=== PATIENT | female | born 2000 | race Caucasian/White ===

== ENCOUNTER 2018-04-19 04:44 | Emergency (ER) | END 2018-04-19 09:02 | disposition home or self-care (01) ==

== ENCOUNTER 2018-06-27 09:51 | Emergency (ER) | END 2018-06-27 11:52 | disposition home or self-care (01) ==

== ENCOUNTER 2019-01-09 17:54 | Emergency (ER) | payer OTHER ==
[~2019-01-09] VITALS: Ht 162.6 cm; Wt 67.5 kg
[~2019-01-09 17:54] MED LIST: ACET500C5 PO; CEPH-443 PO; IBUP800T48 PO; NAPR-985 PO; PRENAT PO
[2019-01-09 18:26] VITALS: Ht 162.6 cm; Wt 67.5 kg
[2019-01-09] MEDS ORDERED: LIDOCAINE/MYLANTA 40 ML BTL PO STA (21:20)
[2019-01-09] MEDS ORDERED: BELLADONNA/PHENOBARBITAL TAB PO STA (21:20)
--- NOTE | 2019-01-09 21:23 | ERD ---
ER Documentation Chief Complaint Chief Complaint abdominal pain x 1 week, denies vomiting HPI 18-year-old female presents with epigastric pain that is mild to moderate intermittent and sharp. No nausea or vomiting. Pain is worse after eating. Has not tried medications for this. Denies possibility of . No dysuria hematuria frequency. No fevers. ROS All systems reviewed and are negative except as per history of present illness. Medications Home Meds Active Scripts Cephalexin* (Keflex*) 500 Mg Capsule, 500 MG PO TID for 7 Days, CAP Prov:JENNIFER HART PA-C 01/09/19 Magaldrate/Simethicone* (Mag-Al Plus Suspension*) 30 Ml Oral.susp, 30 ML PO Q6H PRN for GASTROINTESTINAL UPSET for 5 Days, ML Prov:JENNIFER HART PA-C 01/09/19 Ondansetron (Ondansetron Odt) 4 Mg Tab.rapdis, 4 MG PO Q6H PRN for NAUSEA AND/OR VOMITING, #20 TAB Prov:JENNIFER HART PA-C 01/09/19 Famotidine* (Famotidine*) 40 Mg Tablet, 40 MG PO BID, #30 TAB Prov:JENNIFER HART PA-C 01/09/19 Cephalexin* (Keflex*) 500 Mg Capsule, 500 MG PO BID for 7 Days, CAP Prov:CODY JIN PA-C 06/27/18 Ibuprofen* (Motrin*) 800 Mg Tab, 800 MG PO Q6, #30 TAB Prov:CODY JIN PA-C 06/27/18 Acetaminophen* (Tylophen*) 500 Mg Capsule, 2 CAP PO Q8H PRN for PAIN AND OR ELEVATED TEMP, #20 CAP Prov:VANDANA MANN PA-C 04/19/18 Naproxen* (Naprosyn*) 500 Mg Tablet, 500 MG PO BID PRN for PAIN AND/OR INFLAMMATION, #30 TAB Prov:VANDANA MANN PA-C 04/19/18 Reported Medications Multivit/Min/Fol Ac/Iron/Pren* ( S*) 1 Tab Tab, 1 TAB PO DAILY, TAB 07/09/16 Allergies Allergies: Coded Allergies: No Known Allergy (Unverified , 07/09/16) PMhx/Soc History of Surgery: Yes (cholecystectomy) Anesthesia Reaction: No Hx Neurological Disorder: No Hx Respiratory Disorders: No Hx Cardiac Disorders: No Hx Psychiatric Problems: No Hx Miscellaneous Medical Probl: No Hx Alcohol Use: No Hx Substance Use: No Hx Tobacco Use: No FmHx Family History: No diabetes Physical Exam Vitals Vital Signs Date Temp Pulse Resp B/P (MAP) Pulse Ox O2 O2 Flow FiO2 Time Delivery Rate 01/09/19 98.5 75 18 109/59 98 18:26 (76) Physical Exam INITIAL VITAL SIGNS: Reviewed by me GENERAL: Awake, alert and oriented x 4, well appearing, nontoxic, speaking in full sentences. No acute distress HEAD: Atraumatic NECK: Supple. No masses. Full range of motion. No meningismus. No midline tenderness. RESPIRATORY: Clear to auscultation bilaterally. Symmetric chest wall rise. No wheezing or rales. No accessory muscle use. CV: Regular rate and rhythm. No murmurs, rubs, or gallops. ABDOMEN: Soft, non-distended. Nontender. Negative [place]. Negative McBurneys point tenderness. No CVA tenderness bilaterally. No guarding. No rebound. Result Diagram: 01/09/192156 Results 24 hrs Laboratory Tests Test 01/09/19 21:43 01/09/19 21:44 01/09/19 21:57 Bedside Urine pH (LAB) 6.0 Bedside Urine Protein (LAB) Trace Bedside Urine Glucose (UA) Negative Bedside Urine Ketones (LAB) 4+ Bedside Urine Blood Trace-intact Bedside Urine Nitrite (LAB) Positive Bedside Urine Leukocyte Esterase 1+ (L POC Beta HCG, Qualitative POSITIVE White Blood Count 8.2 10^3/ul Red Blood Count 4.44 10^6/ul Hemoglobin 12.8 g/dl Hematocrit 38.1 % Mean Corpuscular Volume 85.8 fl Mean Corpuscular Hemoglobin 28.8 pg Mean Corpuscular 33.6 g/dl Hemoglobin Concent Red Cell Distribution Width 13.1 % Platelet Count 239 10^3/UL Mean Platelet Volume 11.6 fl Immature Granulocytes % 0.400 % Neutrophils % 69.2 % Lymphocytes % 23.6 % Monocytes % 6.0 % Eosinophils % 0.6 % Basophils % 0.2 % Nucleated Red Blood Cells % 0.0 /100WBC Immature Granulocytes # 0.030 10^3/ul Neutrophils # 5.7 10^3/ul Lymphocytes # 1.9 10^3/ul Monocytes # 0.5 10^3/ul Eosinophils # 0.1 10^3/ul Basophils # 0.0 10^3/ul Nucleated Red Blood Cells # 0.0 10^3/ul Urine Color TEMO Urine Clarity CLOUDY Urine pH 5.0 Urine Specific [place] 1.027 Urine Ketones 2+ mg/dL Urine Nitrite POSITIVE mg/dL Urine Bilirubin NEGATIVE mg/dL Urine Urobilinogen 1+ mg/dL Urine Leukocyte Esterase 2+ Kemi/ul Urine Microscopic RBC 5 /HPF Urine Microscopic WBC 33 /HPF Urine Squamous Epithelial Cells MODERATE /HPF Urine Amorphous Crystals FEW /HPF Urine Bacteria FEW /HPF Urine Mucus MANY /HPF Urine Hemoglobin NEGATIVE mg/dL Urine Glucose NEGATIVE mg/dL Urine Total Protein 1+ mg/dl Beta HCG, Quantitative 07011.0 mIU/ml Current Medications Medications Dose Sig/Bill Start Time Status Last (Trade) Ordered Route PRN Stop Time Admin Dose Reason Admin 40 ml ONCE STAT 01/09/19 Cancel Miscellaneous PO 21:20 Medication 01/09/19 21:21 (Gi Cocktail (2)) Belladonna/ 2 tab ONCE STAT 01/09/19 Cancel Phenobarbital PO 21:20 () 01/09/19 21:21 Procedures/MDM The differential diagnosis includes but is not limited to appendicitis, cho lelithiasis, cholecystitis, pancreatitis, hepatitis, gastritis, peptic ulcer disease, bowel obstruction, diverticulitis, renal disease including stones, torsion, AAA, pyelonephritis, and others. Patient's GI examination is benign she has no tenderness throughout. This is likely GERD versus gastritis. She was given a GI cocktail. Urine dip and test ordered. test came back positive which she was unaware of. I informed however an HEATING EQUIPMENT REPAIRER labs were ordered. She was 7 weeks 5 days with IUP. No evidence of ectopic . Her urine did come back with infection she will be treated with Keflex. She does states she has an HEATING EQUIPMENT REPAIRER that she can follow-up with. Patient counseled regarding my diagnostic impression and care plan. Prior to discharge all questions answered. Pt agrees with treatment plan and understands strict return precautions. Pt is instructed to follow up with primary care provider within 24-48 hours. Precautionary instructions provided including instructions to return to the ER if not improving or for any worsening or changing symptoms or concerns. Departure Diagnosis: Primary Impression: UTI (urinary tract infection) Additional Impression: Condition: Stable JENNIFER HART PA-C Jan 09, 2019 21:23
[2019-01-09] MEDS ORDERED: FAMO40TA5 PO (21:25)
[2019-01-09] MEDS ORDERED: UDMYL PO (21:25)
[2019-01-09] MEDS ORDERED: ONDA4TAB14 PO (21:25)
[2019-01-09] MEDS ORDERED: CEPH-443 PO (23:43)
[2019-01-10 00:08] VITALS: BP 123/60; PULSE 74; RESP 18
== END 2019-01-10 00:10 | disposition home or self-care (01) ==
LOC: FTE 17:54
DX: N39.0 Urinary tract infection, site not specified (principal); Z33.1 Pregnant state, incidental
CPT/HCPCS: 36415; 76801; 81001; 81025; 84702; 85025; 86900; 86901; Z7502; 81003

== ENCOUNTER 2019-01-27 03:56 | Emergency (ER) | payer OTHER ==
[~2019-01-27] VITALS: Ht 162.6 cm; Wt 65.5 kg
[~2019-01-27 03:56] MED LIST changes: +FAMO40TA5 PO; +ONDA4TAB14 PO; +UDMYL PO
[2019-01-27 03:58] VITALS: BP 107/67; PULSE 67; RESP 16; Ht 162.6 cm; Wt 65.5 kg
--- NOTE | 2019-01-27 04:44 | ERD ---
ER Documentation Chief Complaint Chief Complaint aower abd pain x 2 days, intercourse 3 days ago, denies bleeding + Preg HPI 19-year-old female with EGA 13 weeks by LMP, presents the emergency department, complaining of 1 day with mild lower pelvic pain. The patient denies vaginal bleeding, no dysuria, no abdominal pain, no diarrhea or constipation, no nausea or vomiting. ROS All systems reviewed and are negative except as per history of present illness. Medications Home Meds Active Scripts Acetaminophen* (Tylenol*) 325 Mg Tablet, 2 TAB PO Q6 PRN for PAIN AND OR ELEVATED TEMP, #20 TAB Prov:CARMEL NOEL MD 01/27/19 Cephalexin* (Keflex*) 500 Mg Capsule, 500 MG PO TID for 7 Days, CAP Prov:JENNIFER HART PA-C 01/09/19 Magaldrate/Simethicone* (Mag-Al Plus Suspension*) 30 Ml Oral.susp, 30 ML PO Q6H PRN for GASTROINTESTINAL UPSET for 5 Days, ML Prov:JENNIFER HART PA-C 01/09/19 Ondansetron (Ondansetron Odt) 4 Mg Tab.rapdis, 4 MG PO Q6H PRN for NAUSEA AND/OR VOMITING, #20 TAB Prov:JENNIFER HART PA-C 01/09/19 Famotidine* (Famotidine*) 40 Mg Tablet, 40 MG PO BID, #30 TAB Prov:JENNIFER HART PA-C 01/09/19 Cephalexin* (Keflex*) 500 Mg Capsule, 500 MG PO BID for 7 Days, CAP Prov:CODY JIN PA-C 06/27/18 Ibuprofen* (Motrin*) 800 Mg Tab, 800 MG PO Q6, #30 TAB Prov:CODY JIN PA-C 06/27/18 Acetaminophen* (Tylophen*) 500 Mg Capsule, 2 CAP PO Q8H PRN for PAIN AND OR ELEVATED TEMP, #20 CAP Prov:VANDANA MANN PA-C 04/19/18 Naproxen* (Naprosyn*) 500 Mg Tablet, 500 MG PO BID PRN for PAIN AND/OR INFLAMMATION, #30 TAB Prov:VANDANA MANN PA-C 04/19/18 Reported Medications Multivit/Min/Fol Ac/Iron/Pren* ( S*) 1 Tab Tab, 1 TAB PO DAILY, TAB 07/09/16 Allergies Allergies: Coded Allergies: No Known Allergy (Unverified , 07/09/16) PMhx/Soc History of Surgery: Yes (gallbladder) Anesthesia Reaction: No Hx Neurological Disorder: No Hx Respiratory Disorders: No Hx Cardiac Disorders: No Hx Psychiatric Problems: No Hx Miscellaneous Medical Probl: No Hx Alcohol Use: No Hx Substance Use: No Hx Tobacco Use: No Smoking Status: Never smoker Physical Exam Vitals Vital Signs Date Temp Pulse Resp B/P (MAP) Pulse Ox O2 O2 Flow FiO2 Time Delivery Rate 01/27/19 97.9 67 16 107/67 100 03:58 (80) Physical Exam Const: No acute distress Head: Atraumatic Eyes: Normal Conjunctiva ENT: Normal External Ears, Nose and Mouth. Neck: Full range of motion. No meningismus. Resp: Clear to auscultation bilaterally Cardio: Regular rate and rhythm, no murmurs Abd: Soft, non tender, non distended. Normal bowel sounds Skin: No petechiae or rashes Back: No midline or flank tenderness Ext: No cyanosis, or edema Neur: Awake and alert Psych: Normal Mood and Affect Results 24 hrs Laboratory Tests Test 01/27/19 04:48 Urine Color YELLOW Urine Clarity SLIGHTLY CLOUDY Urine pH 5.0 Urine Specific [place] 1.025 Urine Ketones 1+ mg/dL Urine Nitrite NEGATIVE mg/dL Urine Bilirubin NEGATIVE mg/dL Urine Urobilinogen NEGATIVE mg/dL Urine Leukocyte Esterase NEGATIVE Kemi/ul Urine Microscopic RBC 2 /HPF Urine Microscopic WBC 2 /HPF Urine Squamous Epithelial Cells FEW /HPF Urine Bacteria FEW /HPF Urine Mucus FEW /HPF Urine Hemoglobin 1+ mg/dL Urine Glucose NEGATIVE mg/dL Urine Total Protein NEGATIVE mg/dl Patient: AMPARO THURMAN : 2000 Age: 18 Sex: F MR #: [id number] DOS: 01/09/192151 Ordering MD: JENNIFER HART PA-C Location: [facility] Room/Bed: PROCEDURE: US Pelvis. CLINICAL INDICATION: Vaginal Bleed () TECHNIQUE: Multiple sonographic images of the pelvis were obtained utilizing a transabdominal technique. The images were reviewed on a PACS workstation. COMPARISON: None. FINDINGS: There is a single intrauterine gestation with the CRL measuring 1.3 cm and the gestational sac measuring 2.8 cm, corresponding to a gestational age of 7 weeks and 5 days. The heart tones are present at 150 bpm. There is no evidence for free fluid. The right ovary is not seen. The left ovary measures 3.8 x 2.4 x 2.8 cm. IMPRESSION: Single intrauterine gestation of 7 weeks and 5 days. RPTAT: AA. Procedures/MDM Vital signs stable, Physical exam unremarkable. Differential diagnosis include but not limited to: UTI, appendicitis, gastroenteritis, food poisoning, threatening . Physical examination and clinical presentation most likely consistent with pelvic pain without clinical evidence of acute abdomen, no vaginal bleeding. During the ED course the patient remained hemodynamically stable and asymptomatic. Results and clinical impression discussed with patient who agrees with management. The patient is stable to be treated outpatient and will be discharged home with close monitoring and follow-up in 2 days with her primary physician. Bed rest and pelvic rest recommended until further medical evaluation. The patient was instructed regarding the outcomes and the potential complications like severe bleeding and . If the patient presents severe bleeding or pain, she was instructed to return to the hospital immediately. Disclaimer: Inadvertent spelling and grammatical errors are likely due to EHR/dictation software use and do not reflect on the overall quality of patient care. Also, please note that the electronic time recorded on this note does not necessarily reflect the actual time of the patient encounter. Departure Diagnosis: Primary Impression: Pelvic pain affecting Condition: Stable Additional Instructions: Thank you very much for allowing us to participate in your care. Your health and safety is our top priority at [facility]. Call your primary care doctor TOMORROW for an appointment during the next 2-4 days and bring all the information and medications prescribed. Have prescriptions filled and follow precisely the directions on the label. If the symptoms get worse and your provider is unavailable, return to the Emergency Department immediately. CARMEL NOEL MD Jan 27, 2019 04:44
[2019-01-27] MEDS ORDERED: ACET325T33 PO (05:14)
== END 2019-01-27 05:38 | disposition home or self-care (01) ==
LOC: FTE 03:56
DX: O26.891 Other specified pregnancy related conditions, first trimester (principal); R10.2 Pelvic and perineal pain; Z3A.13 13 weeks gestation of pregnancy
CPT/HCPCS: 81001; Z7502; 99283

== ENCOUNTER 2019-05-11 19:45 | Emergency (ER) | payer OTHER ==
[~2019-05-11] VITALS: Ht 167.6 cm; Wt 60.0 kg
[~2019-05-11 19:45] MED LIST changes: -ACET500C5 PO; -CEPH-443 PO; -FAMO40TA5 PO; -IBUP800T48 PO; -NAPR-985 PO; -ONDA4TAB14 PO; -UDMYL PO
[2019-05-11 19:49] VITALS: Ht 167.6 cm; Wt 60.0 kg
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
[2019-05-11 21:06] VITALS: BP 130/81; PULSE 71; RESP 19
== END 2019-05-11 21:07 | disposition home or self-care (01) ==
LOC: E/R 19:45
DX: O26.892 Other specified pregnancy related conditions, second trimester (principal); M54.2 Cervicalgia; O99.89 Other specified diseases and conditions complicating pregnancy, childbirth and the puerperium; M54.9 Dorsalgia, unspecified; Z3A.26 26 weeks gestation of pregnancy
CPT/HCPCS: 72040; Z7502; Z7610

== ENCOUNTER 2019-05-11 21:13 | Inpatient (IN) | payer OTHER ==
[~2019-05-11] VITALS: Ht 160 cm; Wt 63.6 kg
[2019-05-11 21:44] VITALS: Ht 160 cm; Wt 63.6 kg
[2019-05-11 21:45] VITALS: BP 98/56; PULSE 66; RESP 18
[2019-05-11] MEDS ORDERED: ACETAMINOPHEN 500 MG TAB PO PRN (22:30)
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
== END 2019-05-12 07:05 | disposition home or self-care (01) | DRG 833 ==
LOC: L-D 21:13 → OBT 21:13 → L-D 21:21 → OBT 21:55 → L-D 21:55
PROVIDERS: ADMIT Obstetrics & Gynecology; ATTEND Obstetrics & Gynecology
DX: O9A.212 Injury, poisoning and certain other consequences of external causes complicating pregnancy, second trimester (principal); Z3A.25 25 weeks gestation of pregnancy; S39.81XA Other specified injuries of abdomen, initial encounter; V43.92XA Unspecified car occupant injured in collision with other type car in traffic accident, initial encounter; Y92.410 Unspecified street and highway as the place of occurrence of the external cause
CPT/HCPCS: 76815; 80053; 81001; 85025; 85460; 85610; 85730; 86900; 86901; G0463

== ENCOUNTER 2019-08-14 20:12 | Outpatient (CLI) | payer OTHER ==
[~2019-08-14] VITALS: Ht 160 cm; Wt 66.8 kg
[2019-08-14 20:27] VITALS: BP 96/56; PULSE 82; RESP 18; Ht 160 cm; Wt 66.8 kg
== END 2019-08-14 23:20 | disposition home or self-care (01) ==
LOC: OBT 20:12 → L-D 20:13 → OBT 23:20
PROVIDERS: ATTEND Obstetrics & Gynecology
DX: O36.5930 Maternal care for other known or suspected poor fetal growth, third trimester, not applicable or unspecified (principal); Z3A.38 38 weeks gestation of pregnancy
CPT/HCPCS: 76815; 76818; 84112; 85025; Z7500; G0463

== ENCOUNTER 2019-08-19 07:54 | Inpatient (IN) | payer OTHER ==
[~2019-08-19] VITALS: Ht 162.6 cm; Wt 67.2 kg
[2019-08-19 08:19] VITALS: BP 116/86; PULSE 85; RESP 18; Ht 162.6 cm; Wt 67.2 kg
[2019-08-19] MEDS ORDERED: LACTATED RINGER'S 1,000 ML IV SCH (08:20)
[2019-08-19] MEDS ORDERED: IBUPROFEN 600 MG TAB PO PRN (08:30)
[2019-08-19] MEDS ORDERED: OXYTOCIN 30 UNITS/LR 500 ML IV PRN ×3 (08:30→11:00)
[2019-08-19] MEDS ORDERED: CARBOPROST 250 MCG INJ IM PRN ×3 (08:30→11:00)
[2019-08-19] MEDS ORDERED: METHYLERGONOVINE 0.2 MG INJ IM PRN ×3 (08:30→11:00)
[2019-08-19] MEDS ORDERED: MISOPROSTOL 200 MCG TAB PR PRN ×3 (08:30→11:00)
[2019-08-19] MEDS ORDERED: LIDOCAINE 1% (MPF) 30 ML INJ INJ PRN (08:30)
[2019-08-19] MEDS ORDERED: BUTORPHANOL 2 MG INJ IV PRN (08:30)
[2019-08-19] MEDS ORDERED: MINERAL OIL LIGHT 10 ML VIAL TOP PRN (08:30)
[2019-08-19] MEDS ORDERED: OXYTOCIN 30 UNITS/LR 500 ML IV SCH ×5 (08:30→10:38)
[2019-08-19] MEDS ORDERED: LANOLIN HPA 1 PKT TOP PRN ×2 (10:30→11:00)
[2019-08-19] MEDS ORDERED: NACL 0.9% 3 ML SYG IV SCH (10:30)
[2019-08-19] MEDS ORDERED: LACTATED RINGER'S 1,000 ML IV* SCH (10:38)
[2019-08-19] MEDS ORDERED: HYDROCODONE/APAP (5/325) TAB PO PRN ×2 (11:00)
[2019-08-19] MEDS ORDERED: MAGNESIUM HYDROXIDE 30ML CUP PO PRN (11:00)
[2019-08-19] MEDS ORDERED: BENZOCAINE 20% 56 ML SPRAY TOP PRN (11:00)
[2019-08-19] MEDS ORDERED: WITCH HAZEL/GLYCERIN PAD PR PRN (11:00)
[2019-08-19] MEDS ORDERED: METHYLERGONOVINE 0.2 MG TAB PO PRN (11:00)
[2019-08-19] MEDS ORDERED: ONDANSETRON 4 MG INJ IV PRN (11:00)
[2019-08-19] MEDS ORDERED: NA PHOSPHATE/BIPHOS 133 ML ENEMA PR PRN (11:00)
[2019-08-19] MEDS ORDERED: ZOLPIDEM 5 MG TAB PO PRN (11:00)
[2019-08-19] MEDS ORDERED: IBUPROFEN 800 MG TAB PO PRN (11:00)
[2019-08-19] MEDS ORDERED: DIPHENHYDRAMINE 25 MG CAP PO PRN (11:00)
[2019-08-19 14:00] VITALS: BP 92/56; PULSE 74; RESP 18
[2019-08-19] MEDS: IBUPROFEN 600 MG TAB PO SCH ×2 (14:00→17:37)
[2019-08-19 19:20] VITALS: BP 101/54; PULSE 66; RESP 18
[2019-08-19] MEDS: SENNA/DOCUSATE NA (8.6MG/50MG) TAB PO SCH (21:14)
[2019-08-20] MEDS: IBUPROFEN 600 MG TAB PO SCH ×4 (00:12→17:25)
[2019-08-20 03:08] VITALS: BP 99/50; PULSE 68; RESP 18
[2019-08-20 08:15] VITALS: BP 92/56; PULSE 54; RESP 18
[2019-08-20] MEDS: SENNA/DOCUSATE NA (8.6MG/50MG) TAB PO SCH ×2 (09:25→21:00)
[2019-08-20 16:13] VITALS: BP 100/59; PULSE 71; RESP 18
[2019-08-20 20:30] VITALS: BP 96/53; PULSE 64; RESP 18
[2019-08-21] MEDS: IBUPROFEN 600 MG TAB PO SCH ×3 (00:15→12:43)
[2019-08-21 04:10] VITALS: BP 97/52; PULSE 62; RESP 19
[2019-08-21 08:35] VITALS: BP 104/54; PULSE 56; RESP 17
[2019-08-21] MEDS ORDERED: DIPHTH/TET/ACEL PERTUSS (ADULT) 0.5 ML VIAL IM* ONE (09:00)
[2019-08-21] MEDS ORDERED: VARICELLA VACCINE LIVE/PF 1,350 UNIT/0.5 ML ML SC* ONE (09:00)
[2019-08-21] MEDS ORDERED: MEASLES,MUMPS,RUBELLA VACCINE INJ SC* ONE (09:00)
[2019-08-21] MEDS: SENNA/DOCUSATE NA (8.6MG/50MG) TAB PO SCH (09:09)
== END 2019-08-21 14:25 | disposition home or self-care (01) | DRG 807 ==
LOC: L-D 07:54 → OBT 07:54 → L-D 08:13 → PP1 13:46
PROVIDERS: ADMIT Obstetrics & Gynecology; ATTEND Obstetrics & Gynecology
PROC: 10E0XZZ Delivery of Products of Conception, External Approach (ICD-10-PCS; principal; 2019-08-19)
DX: O80 Encounter for full-term uncomplicated delivery (principal); Z37.0 Single live birth; Z3A.39 39 weeks gestation of pregnancy
CPT/HCPCS: 85025; 85610; 85730; 86592; 86850; 86900; 86901; 90715; 90716; 99464; G0463; J2590; J7120